=== PATIENT | female | born 1995 | race Caucasian/White ===

== ENCOUNTER 2022-05-24 18:31 | Emergency (ER) | payer SELFPAY ==
[2022-05-24 18:50] VITALS: BP 114/73; PULSE 99; RESP 18; TEMP 98.3; BMI 23.2
[2022-05-24] MEDS ORDERED: FAMOTIDINE 20 MG/50 ML IVPB 20 MG/50 ML MG IVPB ONE ×2 (19:41→19:42)
[2022-05-24] MEDS ORDERED: ONDANSETRON 4 MG/2 ML VIAL IVPUSH ONE (19:41)
[2022-05-24] MEDS ORDERED: SODIUM CHLORIDE 0.9% 500 ML INFUS.BAG IV ONE (19:41)
[2022-05-24] MEDS ORDERED: ONDANSETRON 4 MG/2 ML VIAL ONE (19:42)
[2022-05-24 20:10] LABS: BASO % 0.6 % (0-2.0); HEMATOCRIT 38.3 % (32.4-45.2); LYMPH % 17.1 % (8-40); MCH 32.3 pg (25.7-33.7); MEAN CELL VOLUME 95.2 fl (80-96); MEAN PLT VOLUME 8.2 fl (7.5-11.1); MONO % 5.2 % (3.8-10.2); NEUT % 77.1 % (42.8-82.8); PLATELET COUNT 288 10^3/uL (134-434); RBC 4.02 M/mm3 (3.60-5.2); RDW 13.9 % (11.6-15.6)
[2022-05-24 20:28] LABS: ALBUMIN 4.6 g/dl (3.4-5.0); CALCIUM 9.3 mg/dL (8.5-10.1)
[2022-05-24 20:32] LABS: CREATININE 0.8 mg/dL (0.55-1.3)
[2022-05-24 20:34] LABS: BILIRUBIN,TOTAL 0.5 mg/dL (0.2-1); TOT PROT 8.1 g/dl (6.4-8.2)
== END 2022-05-24 20:46 | disposition home or self-care (01) ==
LOC: JER 18:31
PROC: 3E033GC Introduction of Other Therapeutic Substance into Peripheral Vein, Percutaneous Approach (ICD-10-PCS; principal; 2022-05-24)
PROC: 3E033GC Introduction of Other Therapeutic Substance into Peripheral Vein, Percutaneous Approach (ICD-10-PCS; 2022-05-24)
DX: T51.91XA Toxic effect of unspecified alcohol, accidental (unintentional), initial encounter (principal); R11.10 Vomiting, unspecified
CPT/HCPCS: 0241U-QW; 36415; 80053; 84703; 85025; 99284-25